=== PATIENT | female | born 2000 | race Caucasian/White ===

== ENCOUNTER → 2021-01-07 | Outpatient (CLI) | payer OTHER ==
--- NOTE | 2021-01-07 11:01 | P.STRESS ---
- Stress Test Note Stress Test Results/Findings: Exam Performed: stress echo exercise with con Exam Date: 01/07/21 Reason for Exam: MURMUR Height: 5 ft 11 in Weight: 144 kg Protocol: KAVYA Stage: 3 Duration of Exercise: 10:19 Resting Heart Rate: 82 Resting Blood Pressure: 118/49 Maximum Achieved Heart Rate: 174 Maximum Achieved Blood Pressure: 155/58 85% PMHR: 168 100% PMHR: 198 METS: Technologist Comment: Stress Test Results/Findings: This is a 20-year-old female with history of cardiac murmur and symptoms of palpitation and shortness of breath, being evaluated for cardiac status. Stress data: Baseline EKG showed sinus rhythm with normal MA interval and QRS duration. Blood pressure at rest is 118/49 with pulse rate of 82. Patient walked on Kavya protocol for 10 minutes and 19 seconds achieving a maximal heart rate of 174 with a blood pressure 124/68. EKGs taken during and after exercise did not reveal any changes of ischemia. Echo data: This study is done with the name is on the baseline echo images showed normal wall motion and thickening. Exercise echo images showed augmentation of wall motion and thickening in all segments. Final impression: #1. Negative stress test #2. Negative stress echo.
--- NOTE | 2021-01-11 10:41 | ECHOS ---
Stress Test Results/Findings: Exam Performed: stress echo exercise with con Exam Date: 01/07/21 Reason for Exam: MURMUR Height: 5 ft 11 in Weight: 144 kg Protocol: KAVYA Stage: 3 Duration of Exercise: 10:19 Resting Heart Rate: 82 Resting Blood Pressure: 118/49 Maximum Achieved Heart Rate: 174 Maximum Achieved Blood Pressure: 155/58 85% PMHR: 168 100% PMHR: 198 METS: Technologist Comment: Stress Test Results/Findings: This is a 20-year-old female with history of cardiac murmur and symptoms of palpitation and shortness of breath, being evaluated for cardiac status. Stress data: Baseline EKG showed sinus rhythm with normal SC interval and QRS duration. Blood pressure at rest is 118/49 with pulse rate of 82. Patient walked on Kavya protocol for 10 minutes and 19 seconds achieving a maximal heart rate of 174 with a blood pressure 124/68. EKGs taken during and after exercise did not reveal any changes of ischemia. Echo data: This study is done with the name is on the baseline echo images showed normal wall motion and thickening. Exercise echo images showed augmentation of wall motion and thickening in all segments. Final impression: #1. Negative stress test #2. Negative stress echo. DALI
== END | disposition home or self-care (01) ==
LOC: RADNMMAIN 09:47
PROVIDERS: ATTEND Family Medicine
DX: R01.1 Cardiac murmur, unspecified (principal)
CPT/HCPCS: 93351; Q9950